=== PATIENT | male | born 2000 | race Hispanic/Latino ===

== ENCOUNTER → 2024-03-11 | Outpatient (CLI) | payer BC, OTHER ==
[~2024-03-11] MED LIST: IOHEXOL 350 MG/ML 100ML INFUS..BTL IV ONE
== END | disposition home or self-care (01) ==
LOC: RAH 10:22
PROVIDERS: ATTEND Family Medicine
DX: N32.89 Other specified disorders of bladder (principal); R16.0 Hepatomegaly, not elsewhere classified; I88.0 Nonspecific mesenteric lymphadenitis; M47.815 Spondylosis without myelopathy or radiculopathy, thoracolumbar region
CPT/HCPCS: 74178; Q9967